=== PATIENT | female | born 1980 | race African-American/Black ===

== ENCOUNTER 2024-11-17 17:01 | Emergency (ER) | payer OTHER ==
[2024-11-17] MEDS ORDERED: Ketorolac Tromethamine 30 MG (1 mL) VIAL ONE (18:40)
== END 2024-11-17 18:46 | disposition home or self-care (01) ==
LOC: ERS 17:01
DX: S46.911A Strain of unspecified muscle, fascia and tendon at shoulder and upper arm level, right arm, initial encounter (principal); F17.210 Nicotine dependence, cigarettes, uncomplicated; X50.0XXA Overexertion from strenuous movement or load, initial encounter; Y93.F2 Activity, caregiving, lifting
CPT/HCPCS: 96372; 99282; J1885